=== PATIENT | female | born 1995 | race Caucasian/White ===

== ENCOUNTER 2021-05-18 03:50 | Emergency (ER) | payer BC, MEDICAID ==
[~2021-05-18 03:50] MED LIST: Oxytocin 10 Units/1 ML SDV ONE
[2021-05-18] MEDS ORDERED: Oxytocin 10 Units/1 ML SDV IM ONE (04:00)
[2021-05-18 04:43] VITALS: BP 116/82; PULSE 74
--- NOTE | 2021-05-18 04:45 | EDM.PDOC ---
ED HPI GENERAL MEDICAL PROBLEM - General Chief Complaint: CNC SPECIALIST Problem Stated Complaint: labor Time Seen by Provider: 05/18/21 03:50 Source of Information: Reports: Patient, EMS, Family (Mom), RN History Limitations: Reports: No Limitations - History of Present Illness INITIAL COMMENTS - FREE TEXT/NARRATIVE: Pt presented to the ER per private car with Mom in active labor wanting to push. EDC is 05/23/21. Labor started earlier this morning when her water broke at 0300. They were on the way to [place] where her OB care has been and turned around and presented to the ER due to pushing. She states that prior to that she had what she thought were arnel najera as they were not regular. Unsure of how far contractions are apart. This is 2nd baby. Only 1 fetus and she has not had any complications during . Onset: Today Location: Reports: Abdomen Vaginal Pain Score (Numeric/FACES): 10 - Related Data Allergies Allergy/AdvReac Type Severity Reaction Status Date / Time Penicillins Allergy Hives Verified 05/18/21 04:45 Sulfa (Sulfonamide Allergy Hives Verified 05/18/21 04:45 Antibiotics) Home Meds: Home Meds Pnv No.95/Ferrous Fum/Folic AC [ Tablet] 1 each PO DAILY 04/07/14 [ History] Past Medical History HEENT History: Reports: None Cardiovascular History: Reports: None Respiratory History: Reports: None Gastrointestinal History: Reports: None Genitourinary History: Reports: None CNC SPECIALIST History: Reports: Musculoskeletal History: Reports: None Neurological History: Reports: None Psychiatric History: Reports: Anxiety Endocrine/Metabolic History: Reports: None Hematologic History: Reports: Anemia Immunologic History: Reports: None Oncologic (Cancer) History: Reports: None Dermatologic History: Reports: None - Infectious Disease History Infectious Disease History: Reports: MRSA - Past Surgical History HEENT Surgical History: Reports: Tonsillectomy Social & Family History - Family History Family Medical History: No Pertinent Family History GI: Reports: Other (See Below) (Esophageal cancer--Maternal grandfather) : Reports: Renal Calculus (Mother) - Caffeine Use Caffeine Use: Reports: Soda ED ROS GENERAL - Review of Systems Review Of Systems: See Below Constitutional: Denies: Fever GI/Abdominal: Reports: Abdominal Pain ED EXAM - Physical Exam Exam: See Below Exam Limited By: No Limitations General Appearance: Alert, WD/WN Respiratory/Chest: No Respiratory Distress, Lungs Clear Cardiovascular: Regular Rate, Rhythm ED DELIVERY OF - General Source: Reports: Patient, Family (grandmother) Exam Limitations: Reports: None - History of Present Illness Initial Comments: Pt presented in active labor wanting to push. With initial exam baby was not crowing. With second push baby crowned and with subsequent pushes he was delivered in SOILA position without any difficulty. Minimal amount of tearing noted. After delivery fundus was massaged and placenta was firm and midline. Minimal amount of vaginal bleeding noted. Placenta was delivered intact. Pitocin was given. Timing of Delivery: Reports: Day(s): (05/18/21), Hour(s): (354) Context: Reports: In ED, Single Mother's Blood Type: Unknown Mother's Rh: Positive - Social History Social History: Single - Vaginal Delivery Delivery Position: Lithotomy, Other (SOILA) Presentation: Cephalic Nuchal Cord: None Estimated Blood Loss: 200 Placenta Delivered: Yes : Bulb Syringe, Stimulated, Warmed, Irving Used Resuscitation Needed: No Score: 9 Course - Vital Signs Last Recorded V/S: Last Vital Signs Temp 97.8 F 05/18/21 03:50 Pulse 74 05/18/21 03:50 Resp 14 05/18/21 03:50 BP 116/82 05/18/21 03:50 Pulse Ox 95 05/18/21 03:50 - Orders/Labs/Meds Labs: Laboratory Tests 05/18/21 Range/Units 04:50 SARS CoV-2 RNA Rapid BRENDA Negative (NEGATIVE) Meds: Medications Discontinued Medications Generic Name Dose Route Start Last Admin Trade Name Nicholas PRN Reason Stop Dose Admin Oxytocin Confirm 05/18/21 03:41 Oxytocin 10 Units/1 Ml Sdv Administered 05/18/21 03:42 Dose 10 unit .ROUTE .STK-MED ONE Oxytocin 10 unit 05/18/21 04:00 05/18/21 05:40 Oxytocin 10 Units/1 Ml Sdv IM 05/18/21 04:01 10 unit ONETIME ONE Administration Phytonadione Confirm 05/18/21 03:51 Phytonadione 10 Mg/1 Ml Amp Administered 05/18/21 03:52 Dose 10 mg .ROUTE .STK-MED ONE Departure - Departure Time of Disposition: 05:10 Disposition: DC/Tfer to Acute Hospital 02 Condition: Good Clinical Impression: Vaginal delivery - Discharge Information *PRESCRIPTION DRUG MONITORING PROGRAM REVIEWED*: Not Applicable *COPY OF PRESCRIPTION DRUG MONITORING REPORT IN PATIENT NIMCO: Not Applicable Forms: ED Department Discharge Additional Instructions: Transferred per ambulance to [facility] to Dr. Chambers her windlace machine operator accepting. Risks of transfer were discussed with pt to include bleeding enroute. Benefits are to include birthing center staff and care. Mom voices understanding of this and wishes to be transported. Placenta will be transferred with the pt. - Problem List & Annotations (1) Vaginal delivery SNOMED Code(s): 155448270 Code(s): O80 - ENCOUNTER FOR FULL-TERM UNCOMPLICATED DELIVERY Status: Acute Priority: High - Problem List Review Problem List Initiated/Reviewed/Updated: Yes
== END 2021-05-18 05:10 | disposition critical access hospital (66) ==
LOC: CC.ED 03:50
DX: O80 Encounter for full-term uncomplicated delivery (principal); Z37.0 Single live birth; Z20.822 Contact with and (suspected) exposure to COVID-19; Z88.0 Allergy status to penicillin; Z88.2 Allergy status to sulfonamides
CPT/HCPCS: 59409; 96372; 99285-25; J2590; U0002